=== PATIENT | female | born 1995 | race Caucasian/White ===

== ENCOUNTER 2018-04-20 14:43 | Emergency (ER) | payer MEDICAID, SELFPAY ==
--- NOTE | 2018-04-20 14:43 | DT_ITS ---
This patient was seen during an EMR downtime April 16, 2018 - April 23, 2018. This patient may have a combination of paper and electronic documentation or all paper documentation. All documentation is viewable within the e-chart portion of [employer] for each patient visit.
== END 2018-04-20 15:30 | disposition home or self-care (01) ==
LOC: ED 04-21 10:30
PROVIDERS: Emergency Provider Emergency Medicine
DX: K04.7 Periapical abscess without sinus (principal); Z72.0 Tobacco use
CPT/HCPCS: 99283

== ENCOUNTER 2018-08-08 16:39 | Emergency (ER) | payer MEDICAID, SELFPAY ==
[2018-08-08 16:39] VITALS: BP 145/79; PULSE 85; RESP 16; TEMP 36.6; O2SAT 99; BMI 23.8
--- NOTE | 2018-08-08 17:00 | ED.DCSUM_ITS ---
- ER Visit Summary Date of Service: 08/08/18 Chief Complaint: Dental pain times 3 days and facial swelling that started today History of Present Illness: The patient is a 23 F who presents because of dental pain not relieved by ibuprofen and worse with drinking or eating anything cold. She had similar problems one month ago. She did not follow-up with dentist. She did get an appointment and her appointment is September 05. She denies fever, chills or night sweats. She denies change in voice, difficulty swallowing or breathing. She denies difficulty opening or closing her mouth completely.. She denies a traumatic fever, murmur, SBE, IV drug use or being immune suppressed. Physical Examination: There is facial swelling noted right side over the body of the mandible in the proximity of the right lower canine first bicuspid. There is no evidence of Edmond's angina. There is no submandibular lymphadenopathy. There is no trismus. There is no dysphonia or dysphasia. Trachea is midline. There is no stridor. Insert cardiopulmonary exam Test Results: None Emergency Department Course and Treatment: 300 mg of clindamycin p.o. and one Gordon tablet Treatment Plan: Prescription for clindamycin and Gordon and dental referral sheet Disposition: Discharge to home Impression: Dental abscess right lower first bicuspid This note was generated with [employer] dictation software. It may contain incorrect words, spelling, and punctuation that were not noted in review of the chart prior to signing ED Disposition - Plan for ED Patient: Disposition: Home or Assisted Living Chief Complaint: Dental Instructions: Dental Abscess Prescriptions: Hydrocodone Bitart/Apap 5-325 [Gordon 5MG-325MG] 1 tab PO Q6H PRN PRN 3 Days #10 tab PRN Reason: Pain Clindamycin HCl [Cleocin] 300 mg PO Q6H #28 cap Referrals: Care Physician,No Primary [Primary Care Provider] - Baylee Haywood [NON-STAFF] - As soon as possible
[2018-08-08] MEDS: Clindamycin HCl 150 MG Capsule 300 MG PO (17:17)
[2018-08-08] MEDS: HYDROcodone Bitartrate/Apap 5/325 Tablet PO (17:17)
== END 2018-08-08 17:31 | disposition home or self-care (01) ==
LOC: ED 17:28
PROVIDERS: Emergency Provider Emergency Medicine
DX: K04.7 Periapical abscess without sinus (principal); K02.9 Dental caries, unspecified; K08.89 Other specified disorders of teeth and supporting structures
CPT/HCPCS: 99283

== ENCOUNTER 2018-09-09 19:36 | Emergency (ER) | payer MEDICAID, SELFPAY ==
[2018-09-09 19:38] VITALS: BP 146/84; PULSE 100; RESP 14; TEMP 36.4; O2SAT 97; BMI 25.7
--- NOTE | 2018-09-09 20:34 | ED.VISSUMM ---
- ER Visit Summary Date of Service: 09/09/18 Chief Complaint: Dental pain History of Present Illness: The patient is a 23 F who presents with right lower dental pain that began today. Patient states she had recent root canal and dental extractions 4 days ago. Patient states that she was doing well until today. Patient noted some swelling over her right lower jaw today. Patient denies any hot or cold sensitivity. Patient denies any fevers or chills. Patient denies any difficulty breathing or difficulty swallowing. Physical Examination: Vital signs are stable. Patient is afebrile. Patient is in no acute distress. Oral mucosa is pink and moist. There is gingival edema over the dental extraction sites that the right lower second and third molars. There is no abscess formation. There is no evidence of dry socket noted. There is no sublingual edema. Oropharynx is clear. Airway is patent. Neck is supple. Trachea is midline. There is mild anterior cervical lymphadenopathy noted. There is no JVD noted. Emergency Department Course and Treatment: Patient was given a dose of clindamycin here. Patient was also given 1 dose of [place] here. Patient was given prescriptions for clindamycin and meloxicam. Patient was instructed to follow-up with her primary care physician and dentist in 3-5 days. Patient understood and was agreeable with the plan. All questions were answered. Disposition: Discharge home Impression: Odontalgia This note was generated with [employer] dictation software. It may contain incorrect words, spelling, and punctuation that were not noted in review of the chart prior to signing ED Disposition - Plan for ED Patient: Disposition: Home or Assisted Living Chief Complaint: Dental Diagnosis: Infected dental caries Instructions: ED Abscess Dental Prescriptions: Meloxicam 15 mg PO DAILY PRN PRN 10 Days #10 tab PRN Reason: Pain Clindamycin HCl [Cleocin] 300 mg PO Q6H #40 cap Referrals: Care Physician,No Primary [Primary Care Provider] -
--- NOTE | 2018-09-09 20:37 | ED.DCSUM_ITS ---
- ER Visit Summary Date of Service: 09/09/18 Chief Complaint: Dental pain History of Present Illness: The patient is a 23 F who presents with right lower dental pain that began today. Patient states she had recent root canal and dental extractions 4 days ago. Patient states that she was doing well until t don. Patient noted some swelling over her right lower jaw today. Patient denies any hot or cold sensitivity. Patient denies any fevers or chills. Patient denies any difficulty breathing or difficulty swallowing. Physical Examination: Vital signs are stable. Patient is afebrile. Patient is in no acute distress. Oral mucosa is pink and moist. There is gingival edema over the dental extraction sites that the right lower second and third molars. There is no abscess formation. There is no evidence of dry socket noted. There is no sublingual edema. Oropharynx is clear. Airway is patent. Neck is supple. Trachea is midline. There is mild anterior cervical lymphadenopathy noted. There is no JVD noted. Emergency Department Course and Treatment: Patient was given a dose of clindamycin here. Patient was also given 1 dose of [place] here. Patient was given prescriptions for clindamycin and meloxicam. Patient was instructed to follow-up with her primary care physician and dentist in 3-5 days. Patient understood and was agreeable with the plan. All questions were answered. Disposition: Discharge home Impression: Odontalgia This note was generated with [employer] dictation software. It may contain incorrect words, spelling, and punctuation that were not noted in review of the chart prior to signing ED Disposition - Plan for ED Patient: Disposition: Home or Assisted Living Chief Complaint: Dental Diagnosis: Infected dental caries Instructions: ED Abscess Dental Prescriptions: Meloxicam 15 mg PO DAILY PRN PRN 10 Days #10 tab PRN Reason: Pain Clindamycin HCl [Cleocin] 300 mg PO Q6H #40 cap Referrals: Care Physician,No Primary [Primary Care Provider] -
[2018-09-09] MEDS: HYDROcodone Bitartrate/Apap 5/325 Tablet PO (20:44)
[2018-09-09] MEDS: Clindamycin HCl 150 MG Capsule 300 MG PO (20:44)
== END 2018-09-09 20:58 | disposition home or self-care (01) ==
LOC: ED 20:42
PROVIDERS: Emergency Provider Emergency Medicine
DX: K08.89 Other specified disorders of teeth and supporting structures (principal); K08.409 Partial loss of teeth, unspecified cause, unspecified class; Z79.2 Long term (current) use of antibiotics
CPT/HCPCS: 99283

== ENCOUNTER 2024-07-02 19:51 | Emergency (ER) | payer MEDICAID, SELFPAY ==
[2024-07-02 19:51] VITALS: BP 136/97; PULSE 91; RESP 16; TEMP 36.8; O2SAT 99; BMI 23.4
--- NOTE | 2024-07-02 20:40 | US_ITS ---
STUDY: ABDOMINAL ULTRASOUND - RIGHT UPPER QUADRANT REASON FOR VISIT: Female, 29 years old PAIN TECHNIQUE: Ultrasound evaluation of the right upper quadrant was performed with real-time and static fall-scale imaging. TECHNICAL QUALITY: Adequate. COMPARISON: None. FINDINGS: Liver: The liver measures 15.6 cm. There is normal echogenicity of the liver. The bile ducts are within normal limits. There is hepatic color flow. The direction of portal flow is hepatopetal. There is no demonstrated mass lesion. Gallbladder: Normal distended gallbladder. The gallbladder wall measures 2 mm. There is a negative sonographic Tinajero''s sign. There is no pericholecystic fluid. There are no gallstones. Common Bile Duct (C.B.D.): The common bile duct measures 3 mm. Pancreas: Normal size of the head, body and tail of the pancreas. There is normal echogenicity of the pancreas. There is no demonstrated pancreatic mass or cyst. Right Kidney: Normal size of the right kidney. The right kidney measures 10.2 cm. Normal renal cortex. The right cortex measures 1.2 cm. There is no demonstrated renal mass or cyst. There is no right hydronephrosis. US/Gallbladder IMPRESSION: Normal right upper quadrant ultrasound examination. Electronically Signed: Ze Purcell MD at 23:03 EDT ,
--- NOTE | 2024-07-02 20:42 | ED.VIS.GI ---
HPI HPI - GI History of Present Illness Chief Complaint: Nausea/Vomiting/Diarrhea Narrative Narrative: 29-year-old female who denies significant past medical history presents with nausea, vomiting, and diarrhea that she has had for the last 1 to 2 days. She states that whenever she tries to eat, she vomits. She vomited multiple times in the last 24 hours, too many to count. It was nonbloody and is more bilious. She also states this is accompanied by right upper quadrant abdominal pain. She denies any fevers but may have felt chilled. Her symptoms began the day before yesterday in the evening. She ate [place] food and is unsure if she got food poisoning. The other night she went to bed and woke up yesterday and it seemed to have settled down but started again last evening. She had an episode of loose stool because she was vomiting, and could not make it to the bathroom in time. She denies any prior abdominal surgeries. PFSH PFSH Medical History no medical history Home Medications ?Medication ?Instructions ?Recorded ?Last Taken ?Type ibuprofen 800 mg tablet 800 mg PO TID PRN PRN Pain #20 tabs 11/08/17 Unknown Rx clindamycin HCl 300 mg capsule 300 mg PO Q6H #28 caps 08/08/18 Unknown Rx clindamycin HCl 300 mg capsule 300 mg PO Q6H #40 caps 09/09/18 Unknown Rx hydrocodone-acetaminophen 5-325mg 1 tab PO Q6H PRN Pain 09/09/18 Unknown History 5mg-325mg ondansetron 4 mg disintegrating 4 mg PO Q6H PRN nausea and 07/02/24 Unknown Rx tablet vomiting #15 tabs Allergy/AdvReac Type Severity Reaction Status Date / Time tramadol Allergy Rash Verified 07/02/24 19:52 naproxen (From Naprosyn) AdvReac Rash Verified 07/02/24 19:52 Penicillins (PCN) AdvReac Unknown Verified 07/02/24 19:52 Social History Smoking Status: Current every day smoker tobacco type: cigarettes ROS ROS ED ROS Narrative Constitutional: No fever, positive chills. HEENT: No sore throat. No neck pain. No loss of vision. No rhinorrhea. Cardiovascular: No chest pain. No palpitations. No pedal edema. Respiratory: No cough, no shortness of breath. Abdominal: Right upper quadrant abdominal pain. Multiple episodes of nausea and vomiting over the last 1 to 2 days. Nonbloody. Reported loose stool. Genitourinary: No dysuria. No hematuria. Musculoskeletal: No myalgias. No arthralgias. Neurologic: No headaches. No dizziness. No lightheadedness. Skin: No rash. No change in color. Psychiatric: No depression. No anxiety. EXAM Physical Exam Narrative Exam Narrative: Afebrile. Vital signs noted. HEENT: Normocephalic. Atraumatic. PERRL, EOMI. Neck soft and supple. No point tenderness or step off. Tacky mucous membranes. Cardiovascular: Regular rate and rhythm. No murmurs, rubs, or gallops appreciated. Respiratory: No tachypnea. Lungs clear to auscultation bilaterally. Gastrointestinal: Abdomen soft, mild tenderness to palpation right upper quadrant with normoactive bowel sounds. No rebound or guarding. Neurological: Awake. Alert. Nonfocal, nonlateralizing. Skin: No rash. Normal color. No pallor. Musculoskeletal: No pedal edema. Full range of motion extremities. Const Vital Signs: 07/02/24 19:51 07/02/24 21:51 07/02/24 23:00 Temperature 98.2 F Temperature Source Temporal Pulse Rate 91 66 70 Respiratory Rate 16 18 18 Blood Pressure 136/97 H 150/79 H Blood Pressure Mean 110 102 Pulse Ox 99 97 98 Oxygen Delivery Method Room Air Room Air Room Air [facility] [place] Narrative Medical decision making narrative: Differential diagnosis includes but not limited to gastroenteritis versus cholecystitis versus cholelithiasis/biliary colic. I have low concern for bowel obstruction because the history and physical does not support this. She may be dehydrated from her multiple episodes of nausea and vomiting in addition to her loose stool. She was bolused normal saline 1 L intravenously and administered ondansetron intravenously as well. I do feel that imaging of the gallbladder is indicated. I do feel this would be more beneficial than CT scan as her pain is limited to the epigastric area and right upper quadrant. She does have a negative Tinajero sign however. I reviewed her laboratory work and she has normal white count of 5.7, hemoglobin slightly hemoconcentrated at 16.1 with hematocrit 48.4, platelet count normal at 260. Electrolyte panel shows slight hypokalemia 3.4 which was replaced orally with 40 mEq. BUN normal at 11 with creatinine 0.69. AST is slightly elevated at 53 which I think is nonspecific. ALT normal as well as alk phos. Lipase normal at 53 so I doubt pancreatitis. Urinalysis negative for infection but there are 5 ketones. I do not feel antibiotics are indicated. I reviewed the radiology report of the ultrasound of the right upper quadrant which shows no evidence of cholecystitis, no pericholecystic fluid or gallstones. Upon repeat examination at approximately 2310, she is resting comfortably on the cot with her . I feel she be discharged safely home with follow-up to her primary care provider. She is given a prescription for Zofran ODT's and will start a clear liquid diet and advance as tolerated. I feel she probably has more of a gastroenteritis versus actual food poisoning. Return instructions to the emergency department were reviewed. Disposition is discharged home in stable condition. History & Record Review Discussion w/independent historian: Patient Lab Data Attestation: I reviewed the patient's lab results. Labs: Laboratory Results - last 24 hr 07/02/24 21:00 WBC 5.7 RBC 5.47 H Hgb 16.1 H Hct 48.4 H MCV 88.5 MCH 29.4 MCHC 33.3 RDW Std Deviation 45.5 H RDW Coeff of Anjelica 14.2 Plt Count 260 MPV 9.1 Immature Gran % (Auto) 0.200 Neut % (Auto) 76.1 H Lymph % (Auto) 17.1 L [place] % (Auto) 5.9 Eos % (Auto) 0.2 Baso % (Auto) 0.5 Absolute Neuts (auto) 4.4 Absolute Lymphs (auto) 0.98 Nucleated RBC % 0 Sodium 138 Potassium 3.4 L Chloride 106 Carbon Dioxide 27.0 Anion Gap 5 BUN 11 Creatinine 0.69 Estim Creat Clear Calc 89.96 Est GFR (MDRD) Af Amer 128 Est GFR (MDRD) Non-Af 106 BUN/Creatinine Ratio 15.9 Glucose 89 Calcium 8.9 Total Bilirubin 0.30 AST 53 H ALT 23 Alkaline Phosphatase 96 Total Protein 7.3 Albumin 3.7 Globulin 3.6 Albumin/Globulin Ratio 1.0 Lipase 53 Urine Color Yellow Urine Clarity Sl. Cloudy Urine pH 6.0 Ur Specific [place] 1.020 Urine Protein 30 H Urine Glucose (UA) Normal Urine Ketones 5 H Urine Occult Blood 25 H Urine Nitrite Negative Urine Bilirubin 1 H Urine Urobilinogen 4 H Ur Leukocyte Esterase 25 H Urine RBC 0-5 SEEN Urine WBC 0-5 SEEN Ur Squamous Epith Cells 10-25 SEEN Ur Transition Epith Cell 0-5 SEEN Urine Bacteria 1+ Urine Mucus 2+ Urine Yeast 1+ Radiography Diagnostic Testing: Clinical Impression(s) from Imaging Studies Gallbladder Ultrasound 07/02/24 20:40 IMPRESSION: Normal right upper quadrant ultrasound examination. Electronically Signed: Ze Purcell MD at 23:03 EDT , Discharge Plan Triage Chief Complaint: Nausea/Vomiting/Diarrhea ED Provider: Philippe Ramos Dx/Rx/DC Orders Clinical Impression: Nausea and vomiting, Mild dehydration Instructions: ED Vomit Diarrhea [place] Adult Prescriptions: New ondansetron 4 mg tablet,disintegrating 4 mg PO Q6H PRN (Reason: nausea and vomiting) Qty: 15 0RF No Action ibuprofen 800 MG tablet 800 mg PO TID PRN PRN (Reason: Pain) Qty: 20 0RF clindamycin HCl 300 MG capsule 300 mg PO Q6H Qty: 28 0RF hydrocodone-acetaminophen 1 EACH tablet 1 tab PO Q6H PRN (Reason: Pain) Patient Comments: take 1 to 2 tablets by mouth every 4 hours if needed for pain clindamycin HCl 300 MG capsule 300 mg PO Q6H Qty: 40 0RF Primary Care Provider: Care Physician,No Primary Referrals: Bashir Bo MD [Med Staff - Active Staff] - 3-5 Days if not improving Care Physician,No Primary [Primary Care Provider] - Activity Restrictions/Additional Instructions: Clear liquid diet and advance as tolerated. Print Language: Ghanaian Disposition Disposition: Home, Self Care
[2024-07-02] MEDS: 0.9% Normal Saline (1000mL) 1,000 ML 999 ML IV (20:59)
[2024-07-02] MEDS: Ondansetron 4 MG/2 ML Vial IV (20:59)
[2024-07-02 21:16] LABS: Absolute Lymphocyte Count 0.98 X10^3/uL (0.83-4.51); Absolute Neutrophil Count 4.4 X10^3/uL (2.0-7.7); Basophil# 0.03 X10^3/uL; Basophil% 0.5 % (0-1); Eosinophil# 0.01 X10^3/uL; Eosinophils% 0.2 % (0-5); Hematocrit 48.4 % (37-47); Hemoglobin 16.1 g/dL (12.0-15.0); Lymphocyte # 0.98 X10^3/ul (0.83-4.51); Lymphocyte % 17.1 % (19-41); Mean Corp Hgb Conc 33.3 g/dL (32-36); Mean Corpuscular Hgb 29.4 pg (27.0-32.0); Mean Corpuscular Volume 88.5 fL (81-99); Mean Platelet Vol. 9.1 fl (6.2-12.0); Monocyte# 0.34 X10^3/uL; Monocyte% 5.9 % (0-10); NRBC Flagged by Analyzer 0 % (0-5); Neutrophil # 4.36 X10^3/uL (2.7-7.7); Neutrophil % 76.1 % (47-70); Platelet Count 260 K/mm3 (150-450); RBC Distribution Width CV 14.2 % (11.6-14.6); RBC Distribution Width SD 45.5 fl (35.1-43.9); Red Blood Count 5.47 M/mm3 (4.2-5.4); White Blood Count 5.7 K/mm3 (4.4-11.0)
[2024-07-02 21:17] LABS: Color, Urine Yellow (Yellow); Glucose, Dipstick Normal (Normal); Ketone-Dipstick 5 mg/dl (Negative); Leukocyte Esterase-Dipstick 25 /ul (Negative); Nitrite-Dipstick Negative (Negative); Occult Blood-Urine 25 /ul (Negative); Protein-Dipstick 30 mg/dl (Negative); Urine Clarity Sl. Cloudy (Clear); Urine Urobilinogen 4 mg/dl (Normal)
[2024-07-02 21:29] LABS: Urine Bilirubin Dipstick 1 mg/dL (Negative)
[2024-07-02 21:32] LABS: Mucous, Urine 2+ /hpf (<or=2+)
[2024-07-02 21:33] LABS: Bacteria 1+ /hpf (None Seen); Red Blood Cells-Urine 0-5 SEEN /hpf (0-5); Squamous Epithelial Cells - UA 10-25 SEEN /hpf (5-10); White Blood Cells 0-5 SEEN /hpf (0-5)
[2024-07-02 21:34] LABS: Yeast-Urine 1+ /hpf (None Seen)
[2024-07-02 21:36] LABS: Transitional Epithelial - Ur 0-5 SEEN /hpf (0-5)
[2024-07-02 21:44] LABS: AST(SGOT) 53 U/L (15-37); Alanine Aminotransfer ALT/SGPT 23 U/L (13-56); Albumin, Serum 3.7 g/dL (3.2-5.0); Alkaline Phosphatase 96 U/L (45-117); Anion Gap 5 (5-15); BUN 11 mg/dL (7-18); BUN/Creat Ratio 15.9 RATIO (10-20); Calcium,Total 8.9 mg/dL (8.5-10.1); Chloride 106 mmol/L (98-107); Creatinine, Serum 0.69 mg/dL (0.55-1.02); EST Glomerular Filtration Rate 106 mL/min (>60); Est Glom Filt Rate - Afr Amer 128 mL/min (>60); Estimated Creatinine Clearance 89.96 ml/min; Globulin 3.6 g/dL (2.2-4.2); Glucose 89 mg/dL (74-106); Lipase 53 U/L (13-75); Potassium 3.4 mmol/L (3.5-5.1); Protein, Total 7.3 g/dL (6.4-8.2); Sodium Level 138 mmol/L (136-145)
[2024-07-02 21:51] VITALS: BP 150/79; PULSE 66; RESP 18; O2SAT 97
[2024-07-02 23:00] VITALS: PULSE 70; RESP 18; O2SAT 98
[2024-07-02] MEDS: Potassium Chloride Oral Tablet 20 MEQ 40 MEQ PO (23:35)
== END 2024-07-02 23:39 | disposition home or self-care (01) ==
PROVIDERS: Emergency Provider Emergency Medicine; Visit Provider Emergency Medicine
DX: R11.2 Nausea with vomiting, unspecified (principal); F17.210 Nicotine dependence, cigarettes, uncomplicated; R19.7 Diarrhea, unspecified; R10.11 Right upper quadrant pain; E86.0 Dehydration
CPT/HCPCS: 76705; 80053; 81001; 83690; 85025; 96361; 96374; 96376; 99282; J7030; A4216; J2405